=== PATIENT | female | born 1945 | race Caucasian/White ===

== ENCOUNTER → 2016-10-26 | Outpatient (CLI) | payer MEDICARE, OTHER ==
[~2016-10-26] MED LIST: CALC-1038; MELO-273 PO; SERT50TA12 PO
--- NOTE | 2016-10-26 10:30 | DI ---
Indication: ITS.REASON: M81.0 OSTEOPOROSIS; M25.562 PAIN IN LEFT KNEE PROCEDURE: KNEE BILAT STANDING 2-3 VIEWS: Encounter: Initial Comparison: None Findings: Right knee: No acute fracture or dislocation. Mild medial compartment joint space narrowing with small osteophytes. The lateral and patellofemoral compartment joint spaces are maintained. No joint effusion. Calcified loose bodies in the posterior medial soft tissues presumably due to old trauma. Left knee: No acute fracture or dislocation. Moderate medial compartment joint space narrowing. Mild meniscal chondrocalcinosis with osteophyte formation. No joint effusion. Patellofemoral compartment joint space is maintained. Impression: Right knee: Mild osteoarthritis. Left knee: Moderate osteoarthritis. .
== END ==
LOC: IMA 10:02
PROVIDERS: ATTEND Internal Medicine
DX: M17.0 Bilateral primary osteoarthritis of knee (principal); M81.0 Age-related osteoporosis without current pathological fracture; M25.562 Pain in left knee

== ENCOUNTER → 2016-11-20 | Outpatient (CLI) | payer MEDICARE, OTHER | LOC: WC.BC 10:42 | DX: Z12.31 Encounter for screening mammogram for malignant neoplasm of breast (principal); N64.59 Other signs and symptoms in breast | CPT/HCPCS: 77063; G0202 ==